=== PATIENT | female | born 1995 | race Caucasian/White ===

== ENCOUNTER 2021-09-20 08:41 | Emergency (ER) | payer MEDICAID ==
[~2021-09-20] VITALS: Ht 157.4 cm; Wt 64.4 kg
[2021-09-20 08:51] VITALS: BP 103/61
[2021-09-20] MEDS ORDERED: PENICILLIN-VK500 MG PO (09:11)
== END 2021-09-20 09:30 | disposition home or self-care (01) ==
LOC: ED 08:41
DX: O99.613 Diseases of the digestive system complicating pregnancy, third trimester (principal); K04.7 Periapical abscess without sinus; Z3A.40 40 weeks gestation of pregnancy; Z91.040 Latex allergy status; Z91.041 Radiographic dye allergy status

== ENCOUNTER → 2022-06-22 | Outpatient (CLI) | payer MEDICAID ==
[~2022-06-22] MED LIST: PENICILLIN-VK500 MG PO
[2022-06-22 14:44] LABS: BASO % 0.7 % (0.0-1.0); EOS # 0.2 10*3/uL (0.0-0.4); EOS % 2.7 % (1.0-4.0); HEMATOCRIT 37.1 % (37.0-47.0); LYMPH % 35.6 % (27.0-41.0); MEAN CELL VOLUME 70.8 fl (81.0-99.0); MEAN CORPUSCULAR HGB 20.8 pg (27.0-31.0); MEAN CORPUSCULAR HGB CONC 29.4 g/dl (33.0-37.0); MONO # 0.3 10*3/uL (0.1-1.0); MONO % 6.1 % (3.0-9.0); NEUT # 3.1 10*3/uL (2.3-7.9); NEUT % 54.5 % (47.0-73.0); PLATELET COUNT AUTOMATED 137 10*3/uL (130-400); RED BLOOD COUNT 5.24 10*6/uL (4.10-5.10); RED CELL DISTRI WIDTH 20.3 % (0-14.5); WHITE BLOOD COUNT 5.6 10*3/uL (4.8-10.8)
[2022-06-22 14:59] LABS: BILIRUBIN Negative (Negative); BLOOD Negative (Negative); CLARITY Clear (Clear); COLOR Yellow (Yellow); GLUCOSE Negative (Negative); KETONE Negative (Negative); LEUKO ESTERASE Negative (Negative); NITRITE Negative (Negative); PH 6.5 (4.5-8.0); SPECIFIC GRAVITY <= 1.005 (1.001-1.030); UROBILINOGEN 0.2 E.U./dl (0.0-1.0)
[2022-06-22 15:11] LABS: ALKALINE PHOSPHATASE 59 U/L (46-116); BUN 6 mg/dl (9-23); CHLORIDE 104 mmol/L (98-107); POTASSIUM 3.8 mmol/L (3.4-5.1); SGPT/ALT 13 U/L (10-49); TOTAL PROTEIN 6.6 gm/dL (6.0-8.0)
[2022-06-22 15:13] LABS: FREE T4 1.14 ng/dl (0.89-1.76); THYROID STIM HORMONE (HS) 2.391 uIU/ml (0.550-4.780)
[2022-06-22 15:40] LABS: RBC 0-2 rbc/hpf (0-2)
== END | disposition home or self-care (01) ==
LOC: LAB 13:29
PROVIDERS: Nurse Practitioner Family; ATTEND Oral & Maxillofacial Surgery
DX: Z01.812 Encounter for preprocedural laboratory examination (principal); F41.9 Anxiety disorder, unspecified; D50.9 Iron deficiency anemia, unspecified

== ENCOUNTER 2023-01-28 12:15 | Emergency (ER) | payer OTHER ==
[~2023-01-28] VITALS: Ht 157.4 cm; Wt 55.8 kg
[2023-01-28 12:37] VITALS: BP 118/74
[2023-01-28] MEDS ORDERED: MELOXICAM15 MG PO (14:26)
[2023-01-28] MEDS ORDERED: CYCLOBENZAPRINE5 M3 PO (14:26)
== END 2023-01-28 14:33 | disposition home or self-care (01) ==
LOC: ED 12:15
DX: S13.4XXA Sprain of ligaments of cervical spine, initial encounter (principal); S39.012A Strain of muscle, fascia and tendon of lower back, initial encounter; S46.912A Strain of unspecified muscle, fascia and tendon at shoulder and upper arm level, left arm, initial encounter; V89.2XXA Person injured in unspecified motor-vehicle accident, traffic, initial encounter; Z98.890 Other specified postprocedural states; Y93.89 Activity, other specified; Y92.410 Unspecified street and highway as the place of occurrence of the external cause; Y99.8 Other external cause status

== ENCOUNTER → 2024-05-16 | Outpatient (CLI) | payer OTHER ==
[~2024-05-16] MED LIST changes: +CYCLOBENZAPRINE5 M3 PO; +MELOXICAM15 MG PO
== END | disposition home or self-care (01) ==
LOC: US 08:32
PROVIDERS: ATTEND Nurse Practitioner Women's Health
DX: N60.02 Solitary cyst of left breast (principal); N64.52 Nipple discharge

== ENCOUNTER 2024-05-30 20:21 | Emergency (ER) | payer OTHER ==
[~2024-05-30] VITALS: Ht 157.4 cm; Wt 60.3 kg
[2024-05-30 20:33] VITALS: BP 120/72
[2024-05-30 21:18] LABS: BILIRUBIN Negative (Negative); BLOOD 3+ (Negative); CLARITY Cloudy (Clear); COLOR Yellow (Yellow); GLUCOSE Negative (Negative); KETONE Trace (Negative); LEUKO ESTERASE 2+ (Negative); NITRITE Negative (Negative); SPECIFIC GRAVITY >= 1.030 (1.001-1.030)
[2024-05-30 21:44] LABS: MUCOUS 2+; WBC 31-40 wbc/hpf (0-5)
[2024-05-30 21:48] LABS: ALKALINE PHOSPHATASE 51 U/L (46-116); BUN 8 mg/dl (9-23); CHLORIDE 107 mmol/L (98-107); POTASSIUM 3.4 mmol/L (3.4-5.1); SGPT/ALT 10 U/L (5-49); TOTAL PROTEIN 6.6 gm/dL (6.0-8.0)
[2024-05-30 22:09] LABS: HEMATOCRIT 31.1 % (37.0-47.0); MEAN CORPUSCULAR HGB 24.4 pg (27.0-31.0); MEAN CORPUSCULAR HGB CONC 32.2 g/dl (33.0-37.0); MEAN PLATELET VOLUME 11.7 fl (9.6-12.3); PLATELET COUNT AUTOMATED 147 10*3/uL (130-400); RED BLOOD COUNT 4.09 10*6/uL (4.10-5.10); WHITE BLOOD COUNT 5.1 10*3/uL (4.8-10.8)
[2024-05-30 22:10] LABS: MANUAL DIFF REFLEX YES
[2024-05-30 22:16] LABS: BASOPHILS 3 % (0-1); OVALOCYTES FEW; PLATELET SUFFICIENCY NORMAL (NORMAL); TOTAL CELLS COUNTED 100 #CELLS
[2024-05-30 22:17] LABS: SCHISTOCYTES FEW
[2024-05-30] MEDS ORDERED: OMNICEF300 MG PO (22:34)
[2024-05-30] MEDS ORDERED: CEFDINIR 300 MG CAP PO ONE (22:40)
== END 2024-05-30 22:44 | disposition home or self-care (01) ==
LOC: ED 20:21
PROVIDERS: Nurse Practitioner Family
DX: O23.41 Unspecified infection of urinary tract in pregnancy, first trimester (principal); O20.9 Hemorrhage in early pregnancy, unspecified; N39.0 Urinary tract infection, site not specified; R10.2 Pelvic and perineal pain; Z3A.09 9 weeks gestation of pregnancy; Z98.890 Other specified postprocedural states

== ENCOUNTER → 2024-11-28 | Outpatient (CLI) | payer OTHER ==
[~2024-11-28] MED LIST changes: +OMNICEF300 MG PO
== END | disposition home or self-care (01) ==
LOC: US 13:00
PROVIDERS: ATTEND Nurse Practitioner Family
DX: R59.0 Localized enlarged lymph nodes (principal); R10.819 Abdominal tenderness, unspecified site

== ENCOUNTER → 2025-05-14 | Outpatient (CLI) | payer OTHER | END | disposition home or self-care (01) | LOC: US 09:02 | PROVIDERS: ATTEND Nurse Practitioner Women's Health | DX: Z34.91 Encounter for supervision of normal pregnancy, unspecified, first trimester (principal); Z3A.09 9 weeks gestation of pregnancy ==